=== PATIENT | male | born 2000 | race Caucasian/White ===

== ENCOUNTER 2022-08-21 14:53 | Emergency (ER) | payer BC ==
[~2022-08-21] VITALS: Ht 182.9 cm; Wt 103.2 kg
[2022-08-21 15:05] VITALS: TEMP 101.2
[2022-08-21 15:42] LABS: COLLECTION METHOD CLEAN CATCH
[2022-08-21 15:45] LABS: BASO % 0.3 % (0.0-2.0); EOS % 0.1 % (0.0-4.0); GRAN # 9.8 K/mm3 (1.4-6.5); GRAN % 77.7 % (42.2-75.2); HEMATOCRIT 47.3 % (42.0-52.0); HEMOGLOBIN 16.2 g/dl (13.5-18.0); LYMPH # 1.3 K/mm3 (1.2-3.4); LYMPH % 9.9 % (20.0-51.0); MEAN CELL VOLUME 81 fl (80.0-100.0); MEAN CORPUSCULAR HEMOGLOBIN 28 pg (27-31); MEAN CORPUSCULAR HGB CONC 34 g/dl (33.0-37.0); MEAN PLATELET VOLUME 10.1 fl (7.4-10.4); MONO # 1.5 K/mm3 (0.1-0.6); MONO % 11.8 % (1.7-9.3); PLATELET COUNT 279 K/mm3 (130-400); RED BLOOD COUNT 5.87 M/mm3 (4.20-5.60); REDCELL DISTRIBUTION WIDTH-CV 13.2 % (11.5-14.5)
[2022-08-21 15:51] LABS: MUCOUS Present (NOT PRESENT); SQUAMOUS EPITHELIAL 0-2 /hpf (0-10); URINE BACTERIA None Seen /hpf (NONE SEEN)
[2022-08-21 15:52] LABS: PH 5.5 (5-8); URINE APPEARANCE Clear (CLEAR/HAZY); URINE COLOR Yellow (YELLOW); URINE GLUCOSE Negative (NEGATIVE); URINE KETONE 3+ (NEGATIVE); URINE PROTEIN(semi-quant) 1+ (NEGATIVE)
[2022-08-21 15:53] LABS: URINE BLOOD Negative (NEGATIVE); URINE NITRATE Negative (NEGATIVE); URINE UROBILINOGEN 0.2 (NEGATIVE)
[2022-08-21 15:58] LABS: STREP SCREEN POSITIVE
[2022-08-21 16:05] LABS: BILIRUBIN,TOTAL 0.8 mg/dL (0.2-1.2); CALCIUM 9.6 mg/dL (8.4-10.2); CREATININE, serum 1.22 mg/dL (0.72-1.25); POTASSIUM 4.3 mmol/L (3.5-4.5); TOTAL PROTEIN 8.3 gm/dL (6.2-8.1)
[2022-08-21] MEDS ORDERED: PEN-VEE K500 MG PO (16:12)
[2022-08-21 16:45] VITALS: BP 132/79; PULSE 100
[2022-08-23] MEDS ORDERED: WELLBUTRIN SR150 M1 PO (20:02)
[2022-08-23] MEDS ORDERED: SEROQUEL 2525 MG/TAB PO (20:03)
[2022-08-23] MEDS ORDERED: PROTONIX 40MG T40 MG PO (20:05)
[2022-08-25] MEDS ORDERED: PROTONIX 40MG T40 MG PO (16:25)
[2022-08-25] MEDS ORDERED: AMOXICILLIN 8751 TAB PO (16:25)
== END 2022-08-21 16:47 | disposition home or self-care (01) ==
LOC: COL.ER 14:53
PROVIDERS: Emergency Medicine
DX: J02.0 Streptococcal pharyngitis (principal); R10.13 Epigastric pain; R00.0 Tachycardia, unspecified; M54.6 Pain in thoracic spine; D72.829 Elevated white blood cell count, unspecified; Z28.310 Unvaccinated for COVID-19; Z20.822 Contact with and (suspected) exposure to COVID-19
CPT/HCPCS: J7030; J8540